=== PATIENT | male | born 1995 | race Hispanic/Latino ===

== ENCOUNTER → 2021-09-26 | Outpatient (CLI) | payer OTHER | END | disposition home or self-care (01) | LOC: RAH 10:50 | PROVIDERS: ATTEND Internal Medicine | DX: R31.9 Hematuria, unspecified (principal) | CPT/HCPCS: 76770 ==

== ENCOUNTER → 2022-05-03 | Outpatient (CLI) | payer OTHER | END | disposition home or self-care (01) | LOC: RAH 10:45 | DX: R31.9 Hematuria, unspecified (principal) | CPT/HCPCS: 76770 ==

== ENCOUNTER → 2022-09-05 | Outpatient (CLI) | payer OTHER ==
[~2022-09-05] MED LIST: IOHEXOL 350 MG/ML 100ML INFUS..BTL IV ONE
== END | disposition home or self-care (01) ==
LOC: RAH 08:38
PROVIDERS: ATTEND Internal Medicine
DX: K42.9 Umbilical hernia without obstruction or gangrene (principal); R31.9 Hematuria, unspecified
CPT/HCPCS: 74176; Q9967

== ENCOUNTER → 2024-07-23 | Outpatient (CLI) | payer OTHER, MEDICARE ==
[~2024-07-23] MED LIST changes: -IOHEXOL 350 MG/ML 100ML INFUS..BTL IV ONE; +ONDA-243 PO
--- NOTE | 2024-07-24 07:15 | HMCSR ---
APPROVED REPORT EXAM: Two-dimensional and M-mode echocardiogram with Doppler and color Doppler. INDICATION ICD: I10.0 Essential (primary) Hypertension 2D Dimensions Ao Root(2D)3.0 (2.0-3.7cm) IVC diam1.5 cm Aortic Valve AoV Vmax1.3 m/Tori Peak GR6.6 mmHgLVOT Vmax0.8 m/s AoV VTI0.2 mAo Mean GR4.6 mmHgLVOT VTI0.14 m Mitral Valve MV E Uqyj609.9 cm/sDECEL Time95 ms MV A Vmax82.4 cm/sP 1/2 T28 ms E/A ratio1.4MVA (PHT)8.0 cm2 TDI E/E' [id number] Left Ventricle Left ventricular cavity size appears normal. Unable to assess LV wall thickness. Unable to assess EF, due to poor quality of echocardiogram. Indeterminate diastolic dysfunction. Right Ventricle The right ventricle apex is not well visualized. Cannot assess right ventricular systolic function. Atria Left atrium is not well visualized. Right atrium is not well visualized. Aortic Valve The aortic valve is not well visualized. Mitral Valve Mitral valve is not well visualized. Tricuspid Valve Tricuspid valve is not well visualized. Pulmonic Valve Pulmonic valve is not well visualized. Great Vessels The aortic root is normal in size. IVC is not well visualized. Pericardium No pericardial effusion. Other Information Quality : Technically Limited Technically limited study due to body habitus and body position(supine). Conclusion Left ventricular cavity size appears normal. Unable to assess EF, due to poor quality of echocardiogram. The right ventricle apex is not well visualized. Cannot assess right ventricular systolic function. Left atrium is not well visualized. The aortic valve is not well visualized. Mitral valve is not well visualized. Tricuspid valve is not well visualized. The aortic root is normal in size. IVC is not well visualized. No pericardial effusion.
== END | disposition home or self-care (01) ==
LOC: SHCH 15:16
PROVIDERS: ATTEND Internal Medicine Cardiovascular Disease
DX: I11.9 Hypertensive heart disease without heart failure (principal)
CPT/HCPCS: 93306